=== PATIENT | male | born 1965 | race Caucasian/White ===

== ENCOUNTER 2018-12-07 08:53 | Day surgery (SDC) | payer OTHER ==
[~2018-12-07] VITALS: Ht 172.7 cm; Wt 91.0 kg
[2018-12-07] MEDS ORDERED: 0.9% SODIUM CHLORIDE 10 ML SYRINGE IVP PRN (09:00)
[2018-12-07] MEDS ORDERED: METOPROLOL TARTRATE 50 MG TABLET PO PRN (09:00)
[2018-12-07] MEDS ORDERED: METOPROLOL TARTRATE 50 MG TABLET ONE (09:47)
[2018-12-07 09:56] LABS: ANION GAP 5 mmol/L (8-16); CALCIUM, TOTAL 8.9 mg/dL (8.8-10.5); CARBON DIOXIDE 31 mmol/L (22-29); CHLORIDE 99 mmol/L (98-107); GLOMERULAR FILTR. RATE CALC > 60 mL/min (>60); GLUCOSE,RANDOM 95 mg/dL (70-110); SODIUM SERUM 135 mmol/L (136-145); UREA NITROGEN, BLOOD 13 mg/dL (7-18)
[2018-12-07] MEDS ORDERED: METOPROLOL TARTRATE 5 MG/5 ML VIAL ONE ×2 (10:42→11:30)
[2018-12-07] MEDS ORDERED: METOPROLOL TARTRATE 5 MG/5 ML VIAL IVP ONE ×4 (10:45→11:30)
[2018-12-07] MEDS ORDERED: IOVERSOL 350 MG/ML 150 ML VIAL ONE ×2 (11:06→11:29)
[2018-12-07] MEDS ORDERED: SODIUM CHLORIDE 0.9% 100 ML ONE (11:06)
[2018-12-07] MEDS ORDERED: NITROGLYCERIN 400 MCG/SUBLINGUAL SPRAY 4.9 GM BOTTLE SL ONE (11:20)
== END 2018-12-07 12:05 | disposition home or self-care (01) ==
LOC: SURGERY 08:53 → EDSTATUS 11:00 → SURGERY 12:05
PROVIDERS: ATTEND Internal Medicine Cardiovascular Disease
DX: I20.9 Angina pectoris, unspecified (principal); I10 Essential (primary) hypertension; G43.909 Migraine, unspecified, not intractable, without status migrainosus; Z98.890 Other specified postprocedural states; Z79.899 Other long term (current) drug therapy
CPT/HCPCS: 36415; 75574; 80048; 93005; J3490; J7050; Q9967